=== PATIENT | male | born 1970 | race Caucasian/White ===

== ENCOUNTER → 2016-11-19 | Outpatient (CLI) | payer OTHER | LOC: LAB 19:08 | DX: J02.8 Acute pharyngitis due to other specified organisms (principal) ==

== ENCOUNTER 2017-08-08 09:00 | Outpatient (RCR) | payer OTHER | END 2017-08-08 09:30 | disposition home or self-care (01) | LOC: PT 09:00 | DX: M79.605 Pain in left leg (principal); M25.562 Pain in left knee ==

== ENCOUNTER → 2017-10-21 | Outpatient (CLI) | payer OTHER | LOC: LAB 18:13 | DX: T63.301A Toxic effect of unspecified spider venom, accidental (unintentional), initial encounter (principal); L03.90 Cellulitis, unspecified; Z88.4 Allergy status to anesthetic agent ==

== ENCOUNTER 2018-03-13 07:05 | Emergency (ER) | payer OTHER ==
[2018-03-13] MEDS ORDERED: PAROXETINE HYDR10 MG PO (07:14)
[2018-03-13] MEDS ORDERED: LISINOPRIL10 MG PO (07:15)
[2018-03-13 07:43] LABS: HEMATOCRIT 49.4 % (42.0-52.0); MEAN CELL VOLUME 82 fl (78-100); MEAN CORPUSCULAR HEMOGLOBIN 28 pg (27-31); MEAN CORPUSCULAR HGB CONC 34 g/dL (33-37); MEAN PLATELET VOLUME 9.6 fl (7.4-10.4); PLATELET COUNT 257 K/mm3 (130-400); RED BLOOD COUNT 6.02 M/mm3 (4.20-5.60); RED CELL DISTRIBUTION WIDTH 12.7 % (11.5-14.5); WHITE BLOOD COUNT 13.3 K/mm3 (4.8-10.8)
[2018-03-13 07:48] LABS: BAND 1 % (0-10); LYMPHOCYTE 8 % (20-51); MONOCYTE 2 % (3-10); NEUTROPHILS 87 % (42-75)
[2018-03-13 07:50] LABS: ALBUMIN 4.6 g/dL (3.5-5.0); CALCIUM 9.7 mg/dL (8.4-10.2); POTASSIUM 4.1 mmol/L (3.6-5.0); TOTAL BILIRUBIN 0.8 mg/dL (0.2-1.3); TOTAL PROTEIN 7.4 g/dL (6.3-8.2)
[2018-03-13 08:21] LABS: D-DIMER 4.04 mg/L FEU (0.15-0.50)
[2018-03-13] MEDS ORDERED: ELIQUIS5 MG PO ×2 (12:21)
[2018-03-13 12:23] VITALS: BP 163/109
== END 2018-03-13 12:31 | disposition home or self-care (01) ==
LOC: ED 07:05
PROVIDERS: Nurse Practitioner Primary Care
DX: R07.89 Other chest pain (principal); Z79.899 Other long term (current) drug therapy
CPT/HCPCS: Q9967

== ENCOUNTER → 2020-03-30 | Outpatient (CLI) | payer BC ==
[~2020-03-30] MED LIST: ELIQUIS5 MG PO; LISINOPRIL10 MG PO; PAROXETINE HYDR10 MG PO
== END ==
LOC: RAD 08:32
DX: K76.0 Fatty (change of) liver, not elsewhere classified (principal)

== ENCOUNTER → 2021-08-31 | Day surgery (SDC) | payer BC | LOC: MSO 06:47 | DX: Z12.11 Encounter for screening for malignant neoplasm of colon (principal); D12.5 Benign neoplasm of sigmoid colon; I10 Essential (primary) hypertension; K21.9 Gastro-esophageal reflux disease without esophagitis; K76.0 Fatty (change of) liver, not elsewhere classified; R79.0 Abnormal level of blood mineral; R94.5 Abnormal results of liver function studies | CPT/HCPCS: 00811; J2704; J7120 ==

== ENCOUNTER → 2024-07-29 | Outpatient (CLI) | payer BC | LOC: RAD 08:11 | DX: K75.81 Nonalcoholic steatohepatitis (NASH) (principal); R74.8 Abnormal levels of other serum enzymes ==